=== PATIENT | female | born 1980 | race Caucasian/White ===

== ENCOUNTER → 2017-06-06 | Outpatient (CLI) | payer MEDICAID | LOC: FIMAGING 11:03 | PROVIDERS: ATTEND Obstetrics & Gynecology | DX: O09.512 Supervision of elderly primigravida, second trimester (principal); Z3A.21 21 weeks gestation of pregnancy ==

== ENCOUNTER 2017-10-12 15:11 | Inpatient (IN) | payer MEDICAID ==
[2017-10-12] MEDS ORDERED: MISOPROSTOL 200 MCG TAB PR PRN (15:16)
[2017-10-12] MEDS ORDERED: LR 500 ML IV PRN (15:16)
[2017-10-12] MEDS ORDERED: LIDOCAINE 1% 300 MG/30 ML SDV SC PRN (15:16)
[2017-10-12] MEDS ORDERED: OLIVE OIL 118 ML BTL MISC PRN (15:16)
[2017-10-12] MEDS ORDERED: IBUPROFEN 600 MG TAB PO PRN (15:16)
[2017-10-12] MEDS ORDERED: EPSOM SALT 454 GM TP PRN (15:16)
[2017-10-12] MEDS ORDERED: TERBUTALINE SULFATE 1 MG/ML VIAL IV PRN (15:16)
[2017-10-12] MEDS ORDERED: OXYTOCIN/RINGERS LACTATE 1,000 ML IV PRN (15:16)
[2017-10-12] MEDS ORDERED: LR 1,000 ML IV PRN (15:16)
--- NOTE | 2017-10-12 15:25 | PDGENHP ---
History and Physical History and Physical: CARE: [facility] ([place], [place]) Midwives HPI: Yana Omalley is a 37 yo with IUP@ 39-6wks that presents to L&D with complaints of SROM- clear fluid @1100. She denies any contractions, or VB. She reports +FM. She denies any headaches, visual changes, epigastric pain. EDC: 10/13/17 which is based on LMP: 01/06/17 which is known and consistent with Ultrasound at 11 weeks. Her is complicated by: AMA, HSV type 2, Rubella NI, MJ use, anemia Review of Systems: Constitutional: Denies any fever, chills, or fatigue HEENT: denies any visual changes, difficulty swallowing, hearing loss Cardiovascular: Denies any chest pain, palpitations, leg swelling Respiratory: denies any cough, wheezing, or shortness of breathe GI: Denies any nausea, vomiting, diarrhea, constipation : denies any dysuria, urgency, frequency, vaginal bleeding Musculoskeletal: denies any muscle or bone pain Skin: denies any rashes Neuro: denies any headache, seizures, lightheadedness, dizziness, or loss of consciousness Psychiatric: denies any depression, anxiety, or SI/HI thoughts HISTORY: Previous OB history: G1 Past medical history: HSV type II, rubella NI Past surgical history: none Medications: PNV, acyclovir, iron Allergies (list reaction): NKDA LABS: Rh:O+ ABS: Neg Rubella: Non-Immune HbsAg: NR HIV: NR VDRL: NR 1hr: 95 GC: Neg Chlamydia: Neg Pap: Normal GBS: negative BMI: (prepreg)23 PHYSICAL EXAM: Constitutional: WN, A&Ox3 HEENT: normocephalic atraumatic, supple Heart: RRR, no murmur Chest: CTA-B Abdomen: Soft, nontender, gravid SVE: 2-3/60/-2, sol score of 7 Extremities: no edema, negative homans sign Neuro: grossly normal Psych: normal affect assessment: Reassuring FHTs, cat 1 Contractions: toco none Assessment: 1) 37 yo with IUP@ 39-6wks 2) PROM 3) GBS negative 4) Cat 1 FHR tracing Plan: 1) Admit to L&D 2) start pitocin after acupuncture 3) pain management PRN 4) reassess 2-4hr/PRN 5) anticipate
[2017-10-12] MEDS ORDERED: OXYTOCIN/RINGERS LACTATE 500 ML IV SCH (15:30)
[2017-10-12] MEDS ORDERED: OXYTOCIN 10 UNIT/ML VIAL ONE (16:06)
[2017-10-12] MEDS ORDERED: LIDOCAINE 1% 300 MG/30 ML SDV ONE (16:06)
[2017-10-12] MEDS ORDERED: OLIVE OIL 118 ML BTL ONE (16:06)
[2017-10-12] MEDS ORDERED: TERBUTALINE SULFATE 1 MG/ML VIAL ONE (16:06)
[2017-10-12] MEDS ORDERED: AMMONIA AROMATIC 1 EACH AMP IH ONE (16:06)
[2017-10-12] MEDS ORDERED: MISOPROSTOL 200 MCG TAB ONE (16:07)
[2017-10-12 17:10] LABS: PLATELET COUNT 214 10^3/uL (150-400)
--- NOTE | 2017-10-12 17:58 | SOAPPROG ---
SOAP Progress Note Assessment/Plan: Assessment: Acupuncture consult ordered by Marbella Acosta CNM for encouragement. Treatment: Auricular: R side: [place] acupuncture for pain management during labor ( Cingulate gyrus, thalamus, pitts men, point zero, and [place] 2). Left side: SP 3 - Balance the ST meridian, tonify the SP, encourage energy. SP 4 - Master of the [place] Amber. Support the uterus. Encourage the baby to turn in presentation. SP 6 - Meeting point of Three Leg Yin. SP 9 - Drain damp, balance the ST meridian, reduce fluid in tissue. LR 3 - Move the qi and blood. Encourage baby to turn. Right Side: ST 36 - Increase Qi and Blood. Support the patient to improve energy and help encourage baby to turn. GB 34 - Open the cervix. GB 40 - Relax the hips, balance GB and LR meridian. GB 41 - Master point of the Jessica Amber (Belt meridian). Relax the hips. Balance LR and GB. BL 65 - Siobhan point of BL meridian. Decrease pain in the low back and relax the paraspinal muscles. BL 67 - encourage downward movement. JIMMIE 1-5 x 7 tin - Relax the paraspinal muscles, reduce inflammation and water retention. Encourage baby movement. Improve movement in flexion and extension. SJ 14 - Relax the hips, lateral. Improve movement in side-bending. Du 26 Open the sacrum, relax the hips. Marion retained for 30 minutes. Objective: Laboratory Results 10/12/17 16:45
[2017-10-12] MEDS ORDERED: CALCIUM CARBONATE 500 MG CHEWABLE TAB PO ONE ×2 (22:29→22:45)
--- NOTE | 2017-10-13 01:39 | OBPROG ---
Labor Progress Note Assessment/Plan: Assessment: [id number] with IUP@40-0wks SROM- clear 10/12 @ 1100 GBS Negative pitocin augmentation Plan: reassess 2-4hr/prn cont pit augment pain management PRN hydrotherapy PRN anticipate 10/13/17 01:31 Subjective/Intrapartum Course: 10/13/17 01:33 Pt doing well, she is breathing through contractions. She has good support system, Will FOB at BS. Pt declines any pain medication at this time, will consider hydrotherapy. Objective: 10/12/17 16:45 Patient ABO/Rh O POSITIVE 10/12/17 16:45 - SVE Dilation (cm): 6 Effacement (%): 75 Station: -2 Membranes: SROM Amniotic Fluid Color: Clear - Contraction Pattern Assessment Current Contraction Pattern: Regular - FHR Assessment Mann FHR (bpm): 135 FHR Pattern Variability: Moderate FHR Category: 1 Oxytocin Orders Assessment - Pre-Induction/Augmentation Assessment Gestational Age: 39 week(s) and 6 day(s) ICD10 Worksheet Patient Problems: Problems Problem Status Onset PROM with onset of labor within 24 hours of rupture Acute - ICD10 Problem Qualifiers (1) PROM with onset of labor within 24 hours of rupture
--- NOTE | 2017-10-13 05:13 | OBDEL ---
Info Type: Vaginal Presentation at Delivery: Vertex L&D Analgesia/Anesthesia Type: None GBS+: No Intrapartum Medications: Discontinued Medications Generic Name Dose Route Start Last Admin Trade Name Smiley PRN Reason Stop Dose Admin Calcium Carbonate 1,000 mg 10/12/17 22:45 10/12/17 22:45 Tums PO 10/12/17 22:46 500 mg ONCE ONE Administration - Hospital Course Intrapartum: 10/13/17 01:33 Pt doing well, she is breathing through contractions. She has good support system, Will FOB at BS. Pt declines any pain medication at this time, will consider hydrotherapy. Indications for Delivery: SROM Vaginal Delivery - Delivery Provider Delivery Physician/CNM: Marbella Acosta - Labor and Delivery Onset of Contractions Date: 10/12/17 Onset of Contractions Time: 23:15 Onset of Contractions Type: Augmented Rupture of Membranes Date: 10/12/17 Rupture of Membranes Time: 11:00 Rupture of Membranes Type: Spontaneous Amniotic Fluid Color: Clear Dilation Complete Date: 10/13/17 Dilation Complete Time: 04:23 Placenta Delivery Date: 10/13/17 Placenta Delivery Time: 04:45 Total Hours of Labor: 5 Laceration: 2nd Degree Repair: 3-0, Vicryl Vaginal Sponge Count Correct: Yes Vaginal Needle Count Correct: Yes Vaginal Sweep Performed: Yes EBL: 250 Delivery Events: Nuchal Cord, Other (Specify) (compound left arm) Delivery Comment: pushed 10 min and delivered in SF position. nuchal and compound arm/hand noted. - Medications Labor Augmentation/Induction Methods Used: Pitocin Data SRINIVAS: 10/13/17 Gestational Age: 40 week(s) and 0 day(s) Mann Delivery Date: 10/13/17 Delivery Time: 04:33 Sex of Infant: Female Score (1 Min): 8 Score (5 Min): 9 ICD10 Worksheet Patient Problems: Problems Problem Status Onset Compound presentation of fetus Acute Nuchal cord, delivered, current hospitalization Acute PROM with onset of labor within 24 hours of rupture Acute (spontaneous vaginal delivery) Acute - ICD10 Problem Qualifiers (1) PROM with onset of labor within 24 hours of rupture (2) (spontaneous vaginal delivery) (3) Nuchal cord, delivered, current hospitalization (4) Compound presentation of fetus
[2017-10-13] MEDS ORDERED: SIMETHICONE 80 MG TAB CHEW PO PRN (05:14)
[2017-10-13] MEDS ORDERED: HYDROCORTISONE 0.5% CREAM TP PRN (05:14)
[2017-10-13] MEDS ORDERED: HYDROCODONE/APAP 5/325 TAB PO PRN (05:14)
[2017-10-13] MEDS ORDERED: CALCIUM CARBONATE 500 MG CHEWABLE TAB PO PRN (08:09)
[2017-10-13] MEDS: DOCUSATE SODIUM 100 MG CAP PO PRN (08:24)
[2017-10-13] MEDS: IBUPROFEN 600 MG TAB PO SCH ×4 (12:01→23:48)
[2017-10-14] MEDS: IBUPROFEN 600 MG TAB PO SCH ×3 (05:39→19:44)
[2017-10-14] MEDS: DOCUSATE SODIUM 100 MG CAP PO PRN ×2 (09:05→19:45)
--- NOTE | 2017-10-14 11:07 | OBPP ---
Progress Note Assessment/Plan: Assessment: 37 y/o PPD #1 s/p Plan: Pt is doing well. Continue support and routine PPC. D/c home tomorrow. 10/14/17 11:06 Subjective/ Course: 10/14/17 11:05 Pt is doing well this am. She has min cramping controlled by Ibuprofen. She is ambulating, voiding without difficulty. Min lochia. Breast feeding is going well. Objective: 10/12/17 16:45 Patient ABO/Rh O POSITIVE 10/12/17 16:45 Temp Pulse Resp BP Pulse Ox 36.3 C 64 20 111/72 96 10/14/17 08:00 10/14/17 08:00 10/14/17 08:00 10/14/17 08:00 10/14/17 08:00 Uterine Position/Fundal Height: Umbilicus -2 Uterine Tone: Firm Physical Exam - Physical Exam General Appearance: alert, no apparent distress Neck: non-tender, full range of motion, supple Respiratory: chest non-tender, lungs clear, normal breath sounds Cardiac/Chest: regular rate, rhythm Abdomen: normal bowel sounds Extremities: swelling (no), Celestino's sign (neg)
[2017-10-14] MEDS ORDERED: EPSOM SALT 454 GM TP ONE (15:22)
[2017-10-15] MEDS: IBUPROFEN 600 MG TAB PO SCH ×2 (02:06→08:22)
[2017-10-15] MEDS: DOCUSATE SODIUM 100 MG CAP PO PRN (08:22)
--- NOTE | 2017-10-15 08:42 | OBPP ---
Progress Note Assessment/Plan: Assessment:PPD#2 s/p - doing well. Plan:DC home today, reviewed instructions, including pelvic rest, ssx of pp depression. See dc summary. Carolyn Nixon MD 10/15/17 08:39 Subjective/ Course: 10/14/17 11:05 Pt is doing well this am. She has min cramping controlled by Ibuprofen. She is ambulating, voiding without difficulty. Min lochia. Breast feeding is going well. 10/15/17 08:39 Doing well. BF going well. Mod lochia decreasing. Ambulating, voiding, + flatus and misa reg diet without difficulty. Ready to go home. Objective: 10/12/17 16:45 Patient ABO/Rh O POSITIVE 10/12/17 16:45 Temp Pulse Resp BP Pulse Ox 36.9 C 78 18 102/64 95 10/14/17 20:18 10/14/17 20:18 10/14/17 20:18 10/14/17 20:18 10/14/17 20:18 Gen - pleasant, NAD CV - RRR chest - CTAB abd - soft, + BS, fundus firm at umbilicus ext - calves NT, trace edema declined exam of perineum Uterine Position/Fundal Height: At Umbilicus Uterine Tone: Firm
--- NOTE | 2017-10-15 08:46 | OBGCSDC ---
General Delivery Information - General Info : 1 Para: 1 Abortions: 0 Type: Vaginal L&D Analgesia/Anesthesia Type: Local Admission Date: 10/12/17 Labs: Patient ABO/Rh O POSITIVE 10/12/17 16:45 Hct 40.3 % (38.0-47.0) 10/12/17 16:45 - Hospital Course Intrapartum: 10/13/17 01:33 Pt doing well, she is breathing through contractions. She has good support system, Will FOB at BS. Pt declines any pain medication at this time, will consider hydrotherapy. : 10/14/17 11:05 Pt is doing well this am. She has min cramping controlled by Ibuprofen. She is ambulating, voiding without difficulty. Min lochia. Breast feeding is going well. 10/15/17 08:39 Doing well. BF going well. Mod lochia decreasing. Ambulating, voiding, + flatus and misa reg diet without difficulty. Ready to go home. Vaginal - Delivery Provider Delivery Physician/CNM: Marbella Acosta - Diagnosis Labor: Augmented Rupture of Membranes Type: Spontaneous Amniotic Fluid Color: Clear Laceration: 2nd Degree Repair: 3-0, Vicryl Delivery Events: Nuchal Cord, Other (Specify) (compound left arm) - Delivery EBL: 250 [place] Data SRINIVAS: 10/13/17 Gestational Age: 40 week(s) and 2 day(s) Mann Delivery Date: 10/13/17 Delivery Time: 04:33 Sex of Infant: Female Weight (gm): 3196 kg Score (1 Min): 8 Score (5 Min): 9 Discharge Information - Discharge Information Condition: Good Instruction/Follow Up: See Instruction Sheet, Four Weeks ([facility]), Six Weeks (pelvic rest until 6 week check with provider in office)
[2017-10-15 10:10] VITALS: BP 103/55
== END 2017-10-15 12:20 | disposition home or self-care (01) | DRG 560 ==
LOC: FLD 15:11 → FOB 10-13 07:53
PROVIDERS: ADMIT Advanced Practice Midwife; ATTEND Obstetrics & Gynecology
DX: O32.6XX0 Maternal care for compound presentation, not applicable or unspecified (principal); O69.9XX0 Labor and delivery complicated by cord complication, unspecified, not applicable or unspecified; O70.1 Second degree perineal laceration during delivery; O99.013 Anemia complicating pregnancy, third trimester; O98.313 Other infections with a predominantly sexual mode of transmission complicating pregnancy, third trimester; D64.9 Anemia, unspecified; Z3A.40 40 weeks gestation of pregnancy; Z37.0 Single live birth
CPT/HCPCS: J2590; J3105

== ENCOUNTER → 2018-09-26 | Outpatient (CLI) | payer MEDICAID | LOC: FLAB 17:26 ==